=== PATIENT | male | born 1985 ===

== ENCOUNTER 2021-08-20 15:38 | Emergency (ER) | payer OTHER ==
[~2021-08-20] VITALS: Ht 177.8 cm; Wt 77.1 kg
[2021-08-20] MEDS ORDERED: ceFAZolin IM 1GM/2.5ML STERILE WATER IM ONE (16:30)
[2021-08-20] MEDS ORDERED: TETANUS-DIPTH-ACEL PERTUSSIS 0.5ML SYR Tdap IM ONE (17:00)
[2021-08-20 18:00] VITALS: BP 149/90
== END 2021-08-20 18:32 | disposition home or self-care (01) ==
LOC: ER 15:38
DX: S81.831A Puncture wound without foreign body, right lower leg, initial encounter (principal); W34.00XA Accidental discharge from unspecified firearms or gun, initial encounter; Y93.89 Activity, other specified; Y92.89 Other specified places as the place of occurrence of the external cause; Y99.8 Other external cause status
CPT/HCPCS: 73552; 90471; 90715; 96372; 99284; J0690